=== PATIENT | male | born 1960 | race Caucasian/White ===

== ENCOUNTER → 2023-04-23 12:37 | Outpatient (BNVA) | payer BC, MEDICAID, SELFPAY | PROVIDERS: Visit Provider Internal Medicine | DX: R07.9 Chest pain, unspecified (principal); I49.3 Ventricular premature depolarization | CPT/HCPCS: 93005 ==

== ENCOUNTER 2023-05-14 11:48 | Outpatient (CLI) | payer BC, MEDICAID, SELFPAY ==
--- NOTE | 2023-05-14 | USCV_ITS ---
Devon Ohara Age: 62 Gender: M : 1960 Exam Date: 05/14/2023 12:45 Ordering Phys: Nayana Smith Technologist: Bartolo Jett Exam Location: [facility] – [place], [place] Indication: heart failure BP: 155 / 97 HR: 52 Rhythm: Sinus Technical Quality: Adequate MEASUREMENTS (Male / Female) Normal Values 2D ECHO LVOT Diameter 2.1 cm LV Ejection Fraction MOD 2C 65.9 % LV Ejection Fraction 2C AL 64.9 % LA Diameter 4.4 cm LA Width 2.9 cm LA Height 5.1 cm RA Width 4.4 cm RA Height 4.0 cm Aorta at Sinotubular Diameter 2.5 cm M-MODE Aortic Annulus Diameter 3.3 cm LA Ao Ratio MM 1.3 MV E Point Septal Separation 0.7 cm DOPPLER AV Peak Velocity 191.3 cm/s LVOT Peak Velocity 85.0 cm/s AV Area Cont Eq vti 1.8 cm squared AV Area Cont Eq pk 1.6 cm squared MV Peak Velocity 88.0 cm/s MV Area PHT 3.1 cm squared Mitral E to A Ratio 0.6 MV E' Velocity 27.0 cm/s Mitral E to MV E' Ratio 9.1 Mitral E to LV E' Lateral Ratio 8.9 Mitral E to LV E' Septal Ratio 9.4 TR Peak Velocity 139.8 cm/s TR Peak Gradient 7.8 mmHg TR Mean Velocity 115.1 cm/s TR Mean Gradient 5.4 mmHg TR Velocity Time Integral 28.8 cm Right Atrial Pressure 8.0 mmHg Pulmonary Artery Systolic Pressu 15.8 mmHg PV Peak Velocity 92.7 cm/s RV Acceleration Time 0.1 s RV Ejection Time 0.3 s RV AcT/ET 0.5 FINDINGS Left Ventricle Left ventricle is normal in size. LV systolic function is normal with EF of 50-55%. No regional wall motion abnormalities are seen. Grade 1 diastolic dysfunction Right Ventricle Normal in size and function Right Atrium Normal in size Left Atrium Normal in size Mitral Valve Structurally normal mitral valve. Mild mitral regurgitation. Aortic Valve Grossly normal. No significant stenosis or regurgitation. Tricuspid Valve Mild tricuspid regurgitation. Insufficient TR jet to calculate RVSP Pulmonic Valve Not well visualized. Mild pulmonic regurgitation. Pericardium Normal Aorta Mildly dilated ascending aorta IVC Not visualized CONCLUSIONS LV systolic function is normal with EF 50 to 55%. Grade 1 diastolic dysfunction. Mild mitral regurgitation Mild tricuspid regurgitation Mild pulmonic regurgitation Mildly dilated ascending aorta. No comparison studies are available Baltazar Larios MD (Electronically Signed) Final Date: 18 May 2023 09:26 S
== END 2023-05-14 11:49 | disposition home or self-care (01) ==
PROVIDERS: Visit Provider Nurse Practitioner Family
DX: I50.30 Unspecified diastolic (congestive) heart failure (principal); I34.0 Nonrheumatic mitral (valve) insufficiency; I51.7 Cardiomegaly
CPT/HCPCS: 93306

== ENCOUNTER → 2023-09-02 09:57 | Outpatient (BNVA) | payer BC, MEDICAID, SELFPAY | PROVIDERS: Referring Provider Registered Nurse; Visit Provider Internal Medicine Cardiovascular Disease | DX: R07.9 Chest pain, unspecified (principal); I45.10 Unspecified right bundle-branch block | CPT/HCPCS: 93005 ==

== ENCOUNTER 2023-11-19 11:54 | Outpatient (CLI) | payer BC, MEDICAID, SELFPAY ==
[2023-11-19 12:30] VITALS: BMI 37.0
--- NOTE | 2023-11-19 12:33 | ECG_ITS ---
[facility] Test Date: 2023-11-19 Pat Name: Devon Ohara Department: Room: Gender: Male Substation Operator Transforming: Maria T Gill : 1960 Requested By: Charan Marin Order Number: [id number] Conner MD: Baltazar Larios M.D. Interpretive Statements NAME OF STUDY: TREADMILL STRESS TEST INDICATION: [Dyspnea, ] PT DID NOT MEET TARGET HR DUE TO SHORTNESS OF BREATH EXERCISE DATA: The patient was exercised by Dion protocol. Baseline heart rate was 62 beats per minute. Baseline blood pressure was 186/89 millimeters of mercury. Target heart rate was 133 beats per minute. Maximum heart rate achieved was 115, which was 86% of the target heart rate. Maximum blood pressure was 206/137 millimeters of mercury. Total exercise time was 3 minutes 14 seconds. Maximum METs achieved was 7. The reason for ending the test was shortness of breath. The patient complained of shortness of breath during the stress test, which then resolved at the end of the test. ELECTROCARDIOGRAM: BASELINE: Showed sinus rhythm, right bundle branch block, no significant ST-T changes at the baseline noted. [] EXERCISE: At the peak exercise level, [] No significant ST-T changes suggestive of ischemia noted. PVCs were seen. [] RECOVERY: During the recovery period, heart rate dropped appropriately. No significant ST-T changes in the recovery suggestive of ischemia noted. [] CONCLUSION: 1. Exercise capacity is poor 2. Heart rate response was sub optimal. 3. Blood pressure response was hypertensive 4. Symptoms of significant shortness of breath. 5. Stress test is indeterminate because of suboptimal heart rate secondary to shortness of breath. Recommend alternate stress test for ruling out ischemia Electronically Signed On 12-06-2023 20:39:39 SUBMARINE ADVISORY TEAM WATCH OFFICER by Baltazar Larios M.D. [id number]
[2023-11-19 13:10] VITALS: BP 164/106; PULSE 77
== END 2023-11-19 11:55 | disposition home or self-care (01) ==
LOC: CDL 11:56
PROVIDERS: PCP Family Medicine; Visit Provider Family Medicine
DX: R55 Syncope and collapse (principal); R06.00 Dyspnea, unspecified; I10 Essential (primary) hypertension; R06.02 Shortness of breath
CPT/HCPCS: 93017

== ENCOUNTER 2023-12-15 07:16 | Outpatient (CLI) | payer BC, MEDICAID, SELFPAY ==
[2023-12-15 07:38] VITALS: BMI 37.0
--- NOTE | 2023-12-15 07:38 | ECG_ITS ---
[facility] Test Date: 2023-12-15 Pat Name: Devon Ohara Department: Room: Gender: Male Blueprint Developer: : 1960 Requested By: Charan Marin Order Number: [id number] Prieto MD: Baltazar Larios M.D. Interpretive Statements NAME OF STUDY: LEXISCAN SESTAMIBI STRESS TEST INDICATION: [Abnormal Exercise Stress Test] Procedure: At the baseline, the blood pressure was 165/100 mmHg with a heart rate of 50 bpm. The electrocardiogram showed normal sinus rhythm, right bundle branch block. The Lexiscan was infused over a period of 20 seconds. A total of 0.4 mg of Lexiscan was infused. The stress phase was continued for a total of 5 minutes. Heart rate was at the end of stress phase was 64 bpm and a blood pressure of 144/95 mmHg. The EKG at the peak infusion revealed normal sinus rhythm with no significant ST-T wave changes. Sestamibi was injected 20 seconds after the Lexiscan infusion. Blood pressure at the end of recovery phase was 144/110 mmHg with a heart rate of 71 bpm. Conclusion: 1. Normal EKG response to Lexiscan infusion 2. No Lexiscan induced chest pain or cardiac arrhythmia. 3. Normal blood pressure and heart rate response. 4. Sestamibi/sestamibi perfusion scan pending; see separate report. Electronically Signed On 12-20-2023 11:59:44 DIRECTOR DIGITAL SALES by Baltazar Larios M.D. [id number]
--- NOTE | 2023-12-15 07:39 | NMCV_ITS ---
NM sridhar perf SPECT r/s* [id number] Devon Ohara Age: 63 Gender: M : 1960 Exam Date: 12/15/2023 08:19 Ordering Phys: Charan Marin Technologist: ARGENTINA Roca Exam Location: [facility] Indications: ABNORMAL FINDINGS ON CARDIOVASCULAR FUNCTION STUDY STRESS TEST Please see separate stress test report in [facility] for full findings IMAGE PROTOCOL Rest/Stress 1 Lexiscan Day Radiopharmaceutical Dose (mCi) Administration Site Administered by Rest: Tc-99m 10.4 IV ARGENTINA Roca Sestamibi Stress:Tc-99m 32.4 IV ARGENTINA Llanos Sestamibi Rest: 15-Dec-2023 60 Discovery 630 Stress: 15-Dec-2023 30 Discovery 630 0.4mg Lexiscan. Supine position only as patient was unable to lay prone. SPECT RESULTS Technical Quality: Excellent Raw Data Analysis: Normal Image Corrections: No attenuation or motion correction applied Summed Stress Score: 10 Summed Rest Score: 21 Summed Difference Score: 0 PERFUSION FINDINGS Large sized area of fixed perfusion defect is seen in wall. This is consistent with large sized area of prior infarct with no significant ischemia in RCA territory. Large sized area of fixed perfusion defect is seen in inferolateral wall. This is consistent with large area of prior infarct with no significant ischemia in left circumflex artery territory. FUNCTIONAL RESULTS (calculated via Gated SPECT) Stress Image LV EF (%): 54 Stress EDV (mL):175 TID: 0.93 Stress ESV (mL):81 FUNCTIONAL FINDINGS: There is normal left ventricular systolic function. IMPRESSIONS 1. 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 No significant ischemia. 2. LV systolic function is normal. Baltazar Larios MD (Electronically Signed) Final Date: 19 December 2023 13:22 S
[2023-12-15] MEDS: regadenoson 0.4 Mg/5 ml Syringe IVP (09:04)
[2023-12-15 09:32] VITALS: BP 145/110; PULSE 82
== END 2023-12-15 07:17 | disposition home or self-care (01) ==
LOC: CDL 07:17
PROVIDERS: PCP Family Medicine; Visit Provider Family Medicine
DX: R94.39 Abnormal result of other cardiovascular function study (principal); I25.2 Old myocardial infarction
CPT/HCPCS: 36415; 78452; 93017; 96374; A9500; J2785